=== PATIENT | female | born 1950 | race Caucasian/White ===

== ENCOUNTER 2016-09-25 08:10 | Outpatient (CLI) | payer MEDICARE | END 2016-09-25 08:11 | disposition home or self-care (01) | DX: E78.2 Mixed hyperlipidemia (principal); Z79.899 Other long term (current) drug therapy; E11.65 Type 2 diabetes mellitus with hyperglycemia; K57.32 Diverticulitis of large intestine without perforation or abscess without bleeding ==

== ENCOUNTER 2017-02-15 09:22 | Outpatient (CLI) | payer MEDICARE ==
[2017-02-15 10:10] LABS: HEMOGLOBIN A1C 0.79 g/dL
== END 2017-02-15 09:23 | disposition home or self-care (01) ==
LOC: LAB 09:22
PROVIDERS: ATTEND Internal Medicine
DX: E11.65 Type 2 diabetes mellitus with hyperglycemia (principal); Z79.899 Other long term (current) drug therapy
CPT/HCPCS: 36415; 82947; 83036

== ENCOUNTER 2017-04-11 08:11 | Outpatient (CLI) | payer MEDICARE ==
[2017-04-11 19:51] LABS: BASOPHILS % (AUTO) 0.5 %; EOSINOPHILS # (AUTO) 0.2 10^3/uL (0.0-0.7); EOSINOPHILS % (AUTO) 3.7 %; HCT - HEMATOCRIT 42.6 % (37.0-47.0); HGB - HEMOGLOBIN 14.3 g/dL (12.0-16.0); LYMPHOCYTES # (AUTO) 1.3 10^3/uL (1.5-3.5); LYMPHOCYTES % (AUTO) 27.6 %; MEAN CORPUSCULAR HEMOGLOBIN 30.1 pg (27.0-31.0); MEAN CORPUSCULAR HGB CONC 33.5 g/dL (32.0-36.0); MEAN CORPUSCULAR VOLUME 89.7 fL (81.0-99.0); MEAN PLATELET VOLUME 9.2 fL (7.9-10.8); MONOCYTES # (AUTO) 0.3 10^3/uL (0.0-1.0); MONOCYTES % (AUTO) 7.5 %; NEUTROPHILS # (AUTO) 2.8 10^3/uL (1.5-6.6); NEUTROPHILS % (AUTO) 60.7 %; RED BLOOD COUNT 4.75 10^6/uL (4.20-5.40); RED CELL DISTRIBUTION WIDTH 13.4 % (12.0-15.0); UNCORRECTED WHITE BLOOD COUNT 4.6 x10^3/uL; WHITE BLOOD COUNT 4.6 x10^3/uL (4.8-10.8)
[2017-04-11 20:03] LABS: ALBUMIN/GLOBULIN RATIO 1.4 (1.0-2.2); BILIRUBIN,TOTAL 1.1 mg/dL (0.2-1.0); BUN - BLOOD UREA NITROGEN 19 mg/dL (6-20); CALCIUM 9.3 mg/dL (8.5-10.3); CARBON DIOXIDE - CO2 26 mmol/L (21-32); CHLORIDE 104 mmol/L (101-111); CHOLESTEROL 257 mg/dL; CREATININE 0.8 mg/dL (0.4-1.0); GFR - MDRD 71 (>89); GLUCOSE 137 mg/dL (70-100); HDL CHOLESTEROL 51 mg/dL; LDL/HDL RATIO 3.2 (<4.4); SODIUM 137 mmol/L (135-145); TOTAL PROTEIN 7.2 g/dL (6.7-8.2); TRIGLYCERIDES 219 mg/dL; VLDL CHOLESTEROL 44 mg/dL
[2017-04-11 20:09] LABS: HEMOGLOBIN A1C 0.75 g/dL
== END 2017-04-11 08:12 | disposition home or self-care (01) ==
LOC: LAB.R 08:11
PROVIDERS: ATTEND Internal Medicine
DX: E78.5 Hyperlipidemia, unspecified (principal); I10 Essential (primary) hypertension; E11.9 Type 2 diabetes mellitus without complications
CPT/HCPCS: 80053; 80061; 83036; 85025

== ENCOUNTER 2017-06-06 08:21 | Outpatient (CLI) | payer MEDICARE ==
--- NOTE | 2017-06-06 10:20 | DEXA Report ---
DEXA SCAN: 06/06/2017 CLINICAL INDICATION: Postmenopausal. TECHNIQUE: Dual energy x-ray absorptiometry (DXA) was performed on a [employer] system. Regions measured are the AP spine, femoral neck, and, if needed, forearm. COMPARISON: None. In accordance with the International Society for Clinical Densitometry (ISCD) guidelines, data from previous exams may be reanalyzed using current recommendations and techniques. This is done to allow a more accurate basis for comparison with the current study. FINDINGS Data for the lumbar spine is as follows: REGION BMD (g/cm/cm) T-SCORE Z-SCORE L1 1.055 -0.6 0.8 L2 1.184 -0.1 1.3 L3 1.300 0.8 2.2 L4 1.349 1.2 2.6 TOTAL 1.228 0.4 1.8 NOTE: All evaluable vertebrae are used for classification. Data for the hip is as follows: REGION BMD (g/cm/cm) T-SCORE Z-SCORE Neck 1.057 0.1 1.6 TOTAL 1.024 0.1 1.3 NOTE: The femoral neck or total proximal femur, whichever is lowest, is used for classification. IMPRESSION: THE WHO CLASSIFICATION BASED ON THE INTERNATIONAL REFERENCE STANDARD IS NORMAL. FRACTURE RISK IS NOT INCREASED. RECOMMENDATION: Patients with diagnosis of osteoporosis or osteopenia should have regular bone mineral density assessment. For those eligible for Medicare, routine testing is allowed once every 2 years. Testing frequency can be increased for patients who have rapidly progressing disease or for those who are receiving medical therapy to restore bone mass. COMMENT: World Health Organization (WHO) definitions for osteoporosis and osteopenia: NORMAL BMD: T-score at -1.0 or higher, fracture risk is low. OSTEOPENIA BMD: T-score between -1.0 and -2.5, fracture risk is increased. OSTEOPOROSIS BMD: T-score at -2.5 or lower, fracture risk high. National Osteoporosis Foundation recommends: 1. Obtain adequate dietary calcium (at least 1200 mg per day) and vitamin D (400 -800 international units per day). 2. Participate, as appropriate, in regular weightbearing and muscle- strengthening exercise. 3. Avoid tobacco use and reduce alcohol and caffeine intake. 4. For more detailed information see the website at www.NOF.org. MTDD
== END 2017-06-06 08:22 | disposition home or self-care (01) ==
LOC: DI 08:21
PROVIDERS: ATTEND Internal Medicine
DX: Z78.0 Asymptomatic menopausal state (principal)
CPT/HCPCS: 77080

== ENCOUNTER 2017-06-06 08:22 | Outpatient (CLI) | payer MEDICARE ==
--- NOTE | 2017-06-07 17:30 | Mammography Report ---
DIGITAL SCREENING MAMMOGRAM: 06/06/2017 CLINICAL INDICATION: A 67-year-old for screening. COMPARISON: 05/2016, 07/2014, 07/2013, 06/2012, 04/2009. TECHNIQUE: Routine CC and MLO projections were obtained of the breasts. The breasts demonstrate scattered fibroglandular densities bilaterally. Coarse and punctate, typical ly benign calcifications are present. No suspicious masses, clustered microcalcifications, or region s of architectural distortion are identified. IMPRESSION: BENIGN FINDINGS. RECOMMENDATION: ROUTINE ANNUAL SCREENING UNLESS OTHERWISE CLINICALLY INDICATED. BIRADS CATEGORY: 2, BENIGN FINDINGS. STANDARD QUALIFYING STATEMENTS 1. This examination was reviewed with the aid of Computed-Aided Detection (CAD). 2. A negative or benign imaging report should not delay biopsy if clinically suspicious findings are present. Consider surgical consultation if warranted. More than 5% of cancers are not identified b y imaging. 3. Dense breasts may obscure an underlying neoplasm. JOB #: [id number] EXT JOB #:[id number]
== END 2017-06-06 08:23 | disposition home or self-care (01) ==
LOC: DI 08:22
PROVIDERS: ATTEND Internal Medicine
DX: Z12.31 Encounter for screening mammogram for malignant neoplasm of breast (principal)
CPT/HCPCS: 77067

== ENCOUNTER 2017-06-13 14:46 | Outpatient (CLI) | payer MEDICARE | END 2017-06-13 14:47 | disposition home or self-care (01) | LOC: LAB.R 14:46 | PROVIDERS: ATTEND Obstetrics & Gynecology | DX: N76.0 Acute vaginitis (principal) | CPT/HCPCS: 87480; 87510; 87660 ==

== ENCOUNTER 2017-08-20 09:19 | Outpatient (CLI) | payer MEDICARE ==
[2017-08-20 14:07] LABS: ALT ALANINE AMINOTRANSFERASE 35 IU/L (10-60); AST ASPARTATE AMINOTRANSFERASE 30 IU/L (10-42); GLUCOSE 125 mg/dL (70-100); LDL CHOLESTEROL,DIRECT 111 mg/dL
[2017-08-20 14:24] LABS: HB2 TOTAL 15.6 g/dL; HEMOGLOBIN A1C 0.8 g/dL; HEMOGLOBIN A1C % 6.8 % (4.6-6.2)
== END 2017-08-20 09:20 | disposition home or self-care (01) ==
LOC: LAB.R 09:19
PROVIDERS: ATTEND Internal Medicine
DX: E11.9 Type 2 diabetes mellitus without complications (principal); E78.5 Hyperlipidemia, unspecified
CPT/HCPCS: 82947; 83036; 83721; 84450; 84460

== ENCOUNTER 2017-11-20 08:00 | Outpatient (CLI) | payer MEDICARE ==
[2017-11-20 13:18] LABS: HB2 TOTAL 14.8 g/dL; HEMOGLOBIN A1C 0.82 g/dL; HEMOGLOBIN A1C % 7.2 % (4.6-6.2)
== END 2017-11-20 08:01 | disposition home or self-care (01) ==
LOC: LAB.R 08:00
PROVIDERS: ATTEND Internal Medicine
DX: E11.9 Type 2 diabetes mellitus without complications (principal)
CPT/HCPCS: 83036

== ENCOUNTER 2018-02-20 08:00 | Outpatient (CLI) | payer MEDICARE ==
[2018-02-20 13:30] LABS: HB2 TOTAL 14.7 g/dL; HEMOGLOBIN A1C 0.75 g/dL; HEMOGLOBIN A1C % 6.8 % (4.6-6.2)
== END 2018-02-20 08:01 ==
LOC: LAB.R 08:00
PROVIDERS: ATTEND Internal Medicine
DX: E11.9 Type 2 diabetes mellitus without complications (principal)
CPT/HCPCS: 83036

== ENCOUNTER 2018-06-17 12:09 | Outpatient (CLI) | payer MEDICARE ==
[2018-06-17 13:12] LABS: BASOPHILS # (AUTO) 0.1 10^3/uL (0.0-0.1); BASOPHILS % (AUTO) 0.9 %; EOSINOPHILS % (AUTO) 0.4 %; HGB - HEMOGLOBIN 13.6 g/dL (12.0-16.0); LYMPHOCYTES # (AUTO) 1.5 10^3/uL (1.5-3.5); MEAN CORPUSCULAR HEMOGLOBIN 30.6 pg (27.0-31.0); MEAN CORPUSCULAR HGB CONC 34.7 g/dL (32.0-36.0); MEAN PLATELET VOLUME 8.9 fL (7.9-10.8); MONOCYTES # (AUTO) 0.5 10^3/uL (0.0-1.0); MONOCYTES % (AUTO) 5.5 %; NEUTROPHILS # (AUTO) 6.9 10^3/uL (1.5-6.6); NEUTROPHILS % (AUTO) 76.2 %; PLT - PLATELET COUNT 170 10^3/uL (130-450); RED BLOOD COUNT 4.46 10^6/uL (4.20-5.40); RED CELL DISTRIBUTION WIDTH 13.3 % (12.0-15.0); WHITE BLOOD COUNT 9.1 x10^3/uL (4.8-10.8)
== END 2018-06-17 12:10 | disposition home or self-care (01) ==
LOC: LAB 12:09
PROVIDERS: ATTEND Nurse Practitioner Primary Care
DX: K57.90 Diverticulosis of intestine, part unspecified, without perforation or abscess without bleeding (principal); R10.32 Left lower quadrant pain
CPT/HCPCS: 85025

== ENCOUNTER 2018-07-03 08:35 | Outpatient (CLI) | payer MEDICARE ==
[2018-07-03 14:07] LABS: HB2 TOTAL 13.8 g/dL; HEMOGLOBIN A1C 0.72 g/dL; HEMOGLOBIN A1C % 6.9 % (4.6-6.2)
== END 2018-07-03 23:59 | disposition home or self-care (01) ==
LOC: LAB.R 08:35
PROVIDERS: ATTEND Internal Medicine
DX: E11.9 Type 2 diabetes mellitus without complications (principal)
CPT/HCPCS: 83036

== ENCOUNTER 2018-11-29 08:51 | Outpatient (CLI) | payer MEDICARE ==
--- NOTE | 2018-11-29 10:27 | Mammography Report ---
Reason: SCREENING MAMMO Procedure Date: 11/29/2018 Accession Number: [id number] / [id number] Procedure: MGN - Screening Mammo Dig Bilat CPT Code: FULL RESULT: EXAM: Screening Mammo Dig Bilat DATE: 11/29/2018 9:12 AM CLINICAL HISTORY: Routine screening TECHNIQUE: (B) - Bilateral CC and MLO views were obtained. COMPARISON: 06/06/2017, 06/05/2016 PARENCHYMAL PATTERN: (A) - The breasts demonstrate scattered fibroglandular densities bilaterally. FINDINGS: There is no significant interval change. There are no suspicious masses, calcifications, or areas of distortion. IMPRESSION: Negative examination. BI-RADS category 1. RECOMMENDATION: (ANNUAL) - Recommend routine annual screening mammography. BI-RADS CATEGORY: (1) - Negative. STANDARD QUALIFYING STATEMENTS: 1. This examination was not reviewed with the aid of Computer-Aided Detection (CAD). 2. A negative or benign imaging report should not preclude biopsy if clinically suspicious findings are present. 3. Dense breasts may obscure an underlying neoplasm. 4. This examination was reviewed without the aid of 3D breast imaging (tomosynthesis).
== END 2018-11-29 08:52 | disposition home or self-care (01) ==
LOC: DI.N 08:51
DX: Z12.31 Encounter for screening mammogram for malignant neoplasm of breast (principal)
CPT/HCPCS: 77067

== ENCOUNTER 2019-07-29 09:30 | Outpatient (CLI) | payer MEDICARE ==
[2019-07-29 09:48] LABS: BASOPHILS % (AUTO) 0.4 %; EOSINOPHILS # (AUTO) 0.1 10^3/uL (0.0-0.7); HGB - HEMOGLOBIN 13.3 g/dL (12.0-16.0); LYMPHOCYTES # (AUTO) 1.4 10^3/uL (1.5-3.5); LYMPHOCYTES % (AUTO) 28.9 %; MEAN CORPUSCULAR HEMOGLOBIN 30.5 pg (27.0-31.0); MEAN CORPUSCULAR HGB CONC 33.3 g/dL (32.0-36.0); MEAN CORPUSCULAR VOLUME 91.5 fL (81.0-99.0); MEAN PLATELET VOLUME 9.9 fL (7.9-10.8); MONOCYTES # (AUTO) 0.4 10^3/uL (0.0-1.0); MONOCYTES % (AUTO) 8.4 %; NEUTROPHILS # (AUTO) 2.9 10^3/uL (1.5-6.6); NEUTROPHILS % (AUTO) 60.1 %; PLT - PLATELET COUNT 170 10^3/uL (130-450); RED BLOOD COUNT 4.36 10^6/uL (4.20-5.40); RED CELL DISTRIBUTION WIDTH 12.8 % (12.0-15.0); WHITE BLOOD COUNT 4.9 x10^3/uL (4.8-10.8)
[2019-07-29 10:08] LABS: ALBUMIN 4.4 g/dL (3.2-5.5); ALBUMIN/GLOBULIN RATIO 1.8 (1.0-2.2); ALKALINE PHOSPHATASE 50 IU/L (42-121); ALT ALANINE AMINOTRANSFERASE 36 IU/L (10-60); AST ASPARTATE AMINOTRANSFERASE 34 IU/L (10-42); BILIRUBIN,TOTAL 1.2 mg/dL (0.2-1.0); BUN - BLOOD UREA NITROGEN 18 mg/dL (6-20); CALCIUM 9.1 mg/dL (8.5-10.3); CARBON DIOXIDE - CO2 30 mmol/L (21-32); CHLORIDE 100 mmol/L (101-111); CHOL/HDL RATIO 5.4 (<4.4); CHOLESTEROL 277 mg/dL; CREATININE 0.9 mg/dL (0.4-1.0); GFR - MDRD 62 (>89); GLUCOSE 140 mg/dL (70-100); HDL CHOLESTEROL 51 mg/dL; LDL CHOLESTEROL,CALCULATED 165 mg/dL; LDL/HDL RATIO 3.2 (<4.4); SODIUM 137 mmol/L (135-145); TOTAL PROTEIN 6.8 g/dL (6.7-8.2); VLDL CHOLESTEROL 61 mg/dL
[2019-07-29 10:12] LABS: CREATININE,URINE 211.6 mg/dL; MICROALBUM/CREATININE RATIO,UR 6.1 ug/mg (<30.0); MICROALBUMIN,URINE 1.3 mg/dL (0-300.0)
[2019-07-29 10:48] LABS: HB2 TOTAL 13.6 g/dL; HEMOGLOBIN A1C 0.75 g/dL; HEMOGLOBIN A1C % 7.2 % (4.6-6.2)
== END 2019-07-29 09:31 | disposition home or self-care (01) ==
LOC: LAB 09:30
PROVIDERS: ATTEND Nurse Practitioner
DX: I10 Essential (primary) hypertension (principal); E11.9 Type 2 diabetes mellitus without complications; E78.5 Hyperlipidemia, unspecified; R13.10 Dysphagia, unspecified
CPT/HCPCS: 36415; 80053; 80061; 82043; 82570; 83036; 83721; 84443; 85025

== ENCOUNTER 2019-08-13 12:57 | Outpatient (CLI) | payer MEDICARE ==
--- NOTE | 2019-08-13 14:56 | XRAY Report ---
Reason: DYSPHAGIA Procedure Date: 08/13/2019 Accession Number: [id number] / [id number] Procedure: FL - Modified Barium Swallow W/SP CPT Code: Final Report FULL RESULT: EXAM: MODIFIED BARIUM SWALLOW EXAM DATE: 08/13/2019 01:47 PM. CLINICAL HISTORY: Dysphagia. COMPARISON: None. TECHNIQUE: Under the direction of speech pathology, patient swallowed various consistencies of barium under lateral fluoroscopic observation of the neck. Fluoroscopy Time: 39 seconds. Number of Images: 33. FINDINGS: Swallowing Mechanism: Normal oral phase and swallowing reflex. Airway Protection: Normal epiglottic motion. No episodes of tracheal penetration or aspiration with all consistencies of barium. Pharynx: Normal. No significant vallecular or piriform sinus contrast pooling. Other: None. IMPRESSION: Normal modified barium swallow. No aspiration identified. RADIA
== END 2019-08-13 12:58 | disposition home or self-care (01) ==
LOC: DI 12:57
PROVIDERS: ATTEND Nurse Practitioner
DX: R13.10 Dysphagia, unspecified (principal)
CPT/HCPCS: 74230

== ENCOUNTER 2019-10-17 16:53 | Outpatient (CLI) | payer MEDICARE ==
[2019-10-17 17:35] LABS: BASOPHILS % (AUTO) 0.3 %; EOSINOPHILS # (AUTO) 0.1 10^3/uL (0.0-0.7); EOSINOPHILS % (AUTO) 0.4 %; HGB - HEMOGLOBIN 13.9 g/dL (12.0-16.0); LYMPHOCYTES # (AUTO) 1.7 10^3/uL (1.5-3.5); LYMPHOCYTES % (AUTO) 14.9 %; MEAN CORPUSCULAR HEMOGLOBIN 30.5 pg (27.0-31.0); MEAN CORPUSCULAR HGB CONC 33.6 g/dL (32.0-36.0); MEAN CORPUSCULAR VOLUME 90.8 fL (81.0-99.0); MEAN PLATELET VOLUME 10.4 fL (7.9-10.8); MONOCYTES # (AUTO) 0.8 10^3/uL (0.0-1.0); MONOCYTES % (AUTO) 7.3 %; NEUTROPHILS # (AUTO) 8.9 10^3/uL (1.5-6.6); NEUTROPHILS % (AUTO) 76.8 %; PLT - PLATELET COUNT 186 10^3/uL (130-450); RED BLOOD COUNT 4.56 10^6/uL (4.20-5.40); RED CELL DISTRIBUTION WIDTH 12.9 % (12.0-15.0); WHITE BLOOD COUNT 11.6 x10^3/uL (4.8-10.8)
--- NOTE | 2019-10-17 17:37 | XRAY Report ---
Reason: ABDOMINAL PAIN, FEVER, COLITIS Procedure Date: 10/17/2019 Accession Number: [id number] / [id number] Procedure: XR - Abdomen 2 View X-Ray CPT Code: 02787 Final Report FULL RESULT: EXAM: ABDOMEN RADIOGRAPHY EXAM DATE: 10/17/2019 05:12 PM. CLINICAL HISTORY: ABDOMINAL PAIN. FEVER. COLITIS. COMPARISON: None. TECHNIQUE: 2 views. FINDINGS: Lung Bases: Unremarkable. Bowel Gas Pattern: Within normal limits. No dilated loops or abnormal fluid levels. No excessive stool Free Air: None. Other: Right lower quadrant clips, likely from appendectomy. No soft tissue calcifications identified. IMPRESSION: Normal 2-view abdomen x-ray. RADIA
[2019-10-17 17:42] LABS: CALCIUM 9.5 mg/dL (8.5-10.3); CREATININE 0.9 mg/dL (0.4-1.0)
== END 2019-10-17 16:54 | disposition home or self-care (01) ==
LOC: DI 16:53
PROVIDERS: ATTEND Family Medicine
DX: R10.32 Left lower quadrant pain (principal); R50.9 Fever, unspecified; K52.9 Noninfective gastroenteritis and colitis, unspecified
CPT/HCPCS: 36415; 74019; 80048; 85025

== ENCOUNTER 2019-11-17 11:38 | Outpatient (CLI) | payer MEDICARE ==
[2019-11-17 17:34] LABS: ALBUMIN 4.2 g/dL (3.2-5.5); ALBUMIN/GLOBULIN RATIO 1.5 (1.0-2.2); ALKALINE PHOSPHATASE 57 IU/L (42-121); ALT ALANINE AMINOTRANSFERASE 29 IU/L (10-60); AST ASPARTATE AMINOTRANSFERASE 27 IU/L (10-42); BILIRUBIN,TOTAL 0.8 mg/dL (0.2-1.0); BUN - BLOOD UREA NITROGEN 19 mg/dL (6-20); CALCIUM 9.3 mg/dL (8.5-10.3); CARBON DIOXIDE - CO2 28 mmol/L (21-32); CHLORIDE 100 mmol/L (101-111); CHOL/HDL RATIO 3.4 (<4.4); CHOLESTEROL 175 mg/dL; CREATININE 0.8 mg/dL (0.4-1.0); GLUCOSE 110 mg/dL (70-100); HDL CHOLESTEROL 51 mg/dL; LDL CHOLESTEROL,CALCULATED 92 mg/dL; LDL/HDL RATIO 1.8 (<4.4); SODIUM 138 mmol/L (135-145); VLDL CHOLESTEROL 32 mg/dL
== END 2019-11-17 23:59 | disposition home or self-care (01) ==
LOC: LAB.WCP 11:38
PROVIDERS: ATTEND Nurse Practitioner
DX: E78.5 Hyperlipidemia, unspecified (principal)
CPT/HCPCS: 36415; 80053; 80061; 83721

== ENCOUNTER 2020-01-28 11:00 | Outpatient (CLI) | payer MEDICARE ==
[2020-01-28 13:17] LABS: HB2 TOTAL 13.2 g/dL; HEMOGLOBIN A1C 0.62 g/dL; HEMOGLOBIN A1C % 6.4 % (4.6-6.2)
== END 2020-01-28 11:01 | disposition home or self-care (01) ==
LOC: LAB 11:00
PROVIDERS: ATTEND Nurse Practitioner
DX: E78.5 Hyperlipidemia, unspecified (principal); E11.9 Type 2 diabetes mellitus without complications
CPT/HCPCS: 36415; 82043; 83036

== ENCOUNTER 2020-08-17 15:40 | Outpatient (CLI) | payer MEDICARE, OTHER ==
--- NOTE | 2020-08-18 10:10 | Mammography Report ---
BILATERAL DIGITAL SCREENING MAMMOGRAM 3D/2D: 08/17/2020 CLINICAL: Routine screening. Comparison is made to exams dated: 11/29/2018 mammogram, 06/06/2017 mammogram - [facility], 08/18/2014 mammogram - [facility], 06/05/2016 mammogram - [facility], 08/04/2013 mammogram, and 07/12/2012 ultrasound - [facility]. There are scattered fibroglandular elements in both breasts. No significant masses, calcifications, or other findings are seen in either breast. There has been no significant interval change. IMPRESSION: NEGATIVE There is no mammographic evidence of malignancy. A 1 year screening mammogram is recommended. This exam was interpreted at Station ID: [id number]. NOTE: For mammograms, a report in lay terms will be sent to the patient. Approximately 15% of breast malignancies will not be visualized mammographically. In the management of a palpable breast mass, a negative mammogram must not discourage biopsy of a clinically suspicious lesion. Electronically Signed By: Henry Grier M.D. ddp/penrad:08/17/2020 16:22:01 ACR BI-RADS Category 1: Negative 3341F PARENCHYMAL PATTERN: (A) - The breast(s) demonstrate(s) scattered fibroglandular densities. BI-RADS CATEGORY: (1) - 1 RECOMMENDATION: (ANNUAL) - Recommend routine annual screening mammography. [id number] 1 year screening LATERALITY: (B)
== END 2020-08-17 15:41 | disposition home or self-care (01) ==
LOC: DI 15:40
DX: Z12.31 Encounter for screening mammogram for malignant neoplasm of breast (principal)

== ENCOUNTER 2021-06-30 08:00 | Emergency (ER) | payer MEDICARE ==
--- NOTE | 2021-06-30 08:23 | ED Physician Documentation ---
History of Present Illness - Stated complaint Stated Complaint: HIGH BP - Chief complaint Chief Complaint: General - History obtained from History obtained from: Patient - Additonal information Additional information: Patient comes emergency department chief complaint of elevated blood pressure. She states that her blood pressures have been sometimes measuring 180-200/90-100. Patient denies any chest pain, shortness of breath, headache, neurologic deficits, or hematuria. She states that she occasionally will feel as though her heart is pounding, Though not very often. Patient states she was previously well controlled on her medication. She currently takes lisinopril 10 mg every morning. She states that after her googled it, he thought maybe it would be more effective for the patient if she took her lisinopril at night, so she tried that too, but with no improvement. No other complaints at this time. The patient sees Dr. Hagen, and states that she can get an appointment with him for follow-up if needed. Review of Systems Ten Systems: 10 systems reviewed and negative Constitutional: reports: Reviewed and negative Eyes: reports: Reviewed and negative Ears: reports: Reviewed and negative Nose: reports: Reviewed and negative Throat: reports: Reviewed and negative Cardiac: reports: Reviewed and negative Respiratory: reports: Reviewed and negative GI: reports: Reviewed and negative : reports: Reviewed and negative Skin: reports: Reviewed and negative Musculoskeletal: reports: Reviewed and negative Neurologic: reports: Reviewed and negative Psychiatric: reports: Reviewed and negative Endocrine: reports: Reviewed and negative Immunocompromised: reports: Reviewed and negative PD PAST MEDICAL HISTORY - Past Medical History Cardiovascular: Hypertension Endocrine/Autoimmune: Type 2 diabetes - Past Surgical History Past Surgical History: Yes General: Appendectomy - Present Medications Home Medications: Ambulatory Orders Medication Instructions Recorded Confirmed lisinopriL [Lisinopril] 10 mg PO DAILY 01/12/16 06/30/21 metFORMIN [Glucophage] 500 mg PO DAILY 01/12/16 01/12/16 Aspirin Chewable [[facility] Giovanny 81 mg PO DAILY 07/24/16 06/30/21 Aspirin] - Allergies Allergies/Adverse Reactions: Allergies Allergy/AdvReac Type Severity Reaction Status Date / Time No Known Drug Allergies Allergy Verified 01/12/16 17:14 - Social History Does the pt smoke?: No Smoking Status: Never smoker Does the pt drink ETOH?: No Does the pt have substance abuse?: No - Immunizations Immunizations are current?: No Immunizations: TDAP >10years/unknown PD ED PE NORMAL - Vitals Vital signs reviewed: Yes - General General: Alert and oriented X 3, No acute distress, Well developed/nourished - HEENT HEENT: Atraumatic, PERRL, EOMI, Moist mucous membranes - Neck Neck: Supple, no meningeal sign - Cardiac Cardiac: RRR, No murmur, Strong equal pulses - Respiratory Respiratory: No respiratory distress, Clear bilaterally - Abdomen Abdomen: Soft, Non tender, Non distended - Derm Derm: Normal color, Warm and dry, No rash - Extremities Extremities: No deformity, No edema, No calf tenderness / cord - Neuro Neuro: Alert and oriented X 3, proof passer 2-12 intact, Normal speech - Psych Psych: Normal mood, Normal affect Results - Vitals Vitals: Oxygen O2 Source Room air - Labs Labs: Laboratory Tests 06/30/21 08:51 POC Whole Bld Glucose 131 H PD MEDICAL DECISION MAKING - ED course Complexity details: reviewed old records, considered differential, d/w patient ED course: The patient did have higher blood pressures in the emergency department, but she was asymptomatic. I suggested to her that perhaps it would be good for her to add a dose of lisinopril at night in addition to, instead of instead of, her morning dose. I have suggested initially adding 5 mg of lisinopril in the evening and going up to 10 if she feels like she needs better control. I advised her to take her blood pressure forcing in the morning as she usually does, but also perhaps in the midmorning once her meds have had a chance to kick in, in mid afternoon, and then in the evening. Patient is agreeable to this plan. She states she will call Dr. Hagen's office first thing after she goes home, to get an appointment set up. Departure - Departure Disposition: Home, Self Care Clinical Impression: Hypertension Qualifiers: Hypertension type: primary hypertension Qualified Code(s): I10 - Essential (primary) hypertension Condition: Stable Instructions: ED HTN Established Comments: Your blood pressure is high, but you do not have any symptoms to indicate a hypertensive emergency, which is defined by distinct evidence of acute injury to vital organs. Given that you have had increasingly high blood pressures over the last week, it may be helpful to add an evening dose of your lisinopril for now, and see if this helps avoid the morning highs. You may continue taking the lisinopril 10 mg in the morning, and add 5 mg at night. In addition to your first thing in the morning blood pressure check, you can check in the midmorning, midafternoon, and then right before your evening dose of medicine, and to get an idea of how your blood pressure is responding to the medicine throughout the day. Please call Dr. Hagen's office this afternoon to set up an appointment for follow-up as soon as possible, to discuss what he thinks would be a good long-term plan for your blood pressure control. Please also in the meantime avoid foods with high levels of salt or sugar. Discharge Date/Time: 06/30/21 10:36
[2021-06-30] MEDS ORDERED: lisinopriL 5 MG TABLET PO STA (09:16)
[2021-06-30 10:37] VITALS: BP 130/100
== END 2021-06-30 10:36 | disposition home or self-care (01) ==
LOC: ED 08:00
DX: I10 Essential (primary) hypertension (principal); E11.9 Type 2 diabetes mellitus without complications; Z79.84 Long term (current) use of oral hypoglycemic drugs
CPT/HCPCS: 99282; 99284; A9270

== ENCOUNTER 2024-07-20 09:12 | Observation (INO) ==
--- NOTE | 2024-07-20 09:20 | ED Physician Documentation ---
History of Present Illness Stated complaint Stated Complaint: SYNCOPE W/FALL Chief complaint Chief Complaint: Neuro History obtained from History obtained from: Patient and EMS Additonal information Additional information: 74-year-old woman with type 2 diabetes and hypertension woke up this morning feeling tired but generally okay, she went into the kitchen around 8 AM and started to feel lightheaded type dizziness and then nauseous subsequently went into the bathroom thinking she might have to vomit and had a syncopal episode without clear injury. She did vomit several times. She denies abdominal pain, diarrhea, chest pain, trouble breathing. She is still feeling nauseous. Prehospital blood sugar in the 200s. Meds/Allgy Home Medications Ambulatory Orders Medication Instructions Recorded Confirmed lisinopril 5 mg tablet 10 mg PO DAILY 01/12/16 06/30/21 metformin 500 mg tablet 500 mg PO DAILY 01/12/16 01/12/16 aspirin 81 mg chewable tablet 81 mg PO DAILY 07/24/16 06/30/21 Allergies Allergies Allergy/AdvReac Type Severity Reaction Status Date / Time No Known Drug Allergies Allergy Verified 07/20/24 09:21 [facility] Medical History Medical History (Updated 07/20/24 @ 11:29 by Robles Mason MD) Diabetes Social History Social History Smoking Status: Never smoker Relationship: Do you feel safe in your home environment?: Yes Suffered physical, verbal, emotional, or financial abuse?: No History of Abuse: No POLST Patient has POLST: No Exam Constitutional normal general appearance Soft-spoken but nontoxic, covered in vomit. Nonbloody. 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 Relevant findings are: Normal sinus rhythm with rate of 68, no ST or T wave changes. No wide QRS or long QTc. Overall normal EKG. Labs Labs: Laboratory Tests 07/20/24 10:42 WBC 9.3 RBC 4.19 L Hgb 12.4 Hct 38.2 MCV 91.2 MCH 29.6 MCHC 32.5 RDW 12.7 Plt Count 148 MPV 10.6 Neut # (Auto) 8.1 H Lymph # (Auto) 0.8 L [place] # (Auto) 0.4 Eos # (Auto) 0.0 Baso # (Auto) 0.0 Absolute Nucleated RBC 0.00 Nucleated RBC % 0.0 Sodium 138 Potassium 3.6 Chloride 108 Carbon Dioxide 26 Anion Gap 4.0 L BUN 18 Creatinine 0.9 Estimated GFR (MDRD) 61 L Glucose 150 H Calcium 8.9 Total Bilirubin 0.6 AST 18 ALT 22 Alkaline Phosphatase 62 Total Protein 6.2 L Albumin 4.1 Globulin 2.1 Albumin/Globulin Ratio 2.0 Lipase 63 Rads (name of study) CT of the head without contrast was unremarkable.: Relevant Findings:: Final report received and EMP independent interpretation of test (NAD, no ICH) PD Medical Decision Making ED course ED course: 74-year-old woman with syncope associated with vomiting. Could be vasovagal but cardiac event is also considered. EKG nonischemic. On the monitor she is having occasional PVCs. No runs of anything. CBC, CMP unremarkable. Still feeling weak and dizzy but less nauseous after IV fluids and Zofran. 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 All parties wanting observation for syncope and spoke with Dr. Ramsey for same at 11:30 AM. Discharge Plan Discharge Patient Disposition: ED Place in Observation Condition: Stable Clinical Impression: Syncope Qualifiers: Syncope type: vasovagal syncope Qualified Code(s): R55 - Syncope and collapse Prescriptions: No Action metformin 500 MG tablet 500 mg PO DAILY lisinopril 5 MG tablet 10 mg PO DAILY aspirin 81 MG tablet,chewable 81 mg PO DAILY Print Language: Hebrew Stand Alone Forms: PCP List
[2024-07-20] MEDS: SODIUM CHLORIDE 0.9% 1,000 ML IV STA (09:28)
[2024-07-20] MEDS: ONDANSETRON 4 MG/2 ML VIAL IVP STA (09:28)
--- NOTE | 2024-07-20 10:07 | CT Report ---
PROCEDURE: CT Head WO INDICATIONS: head inj, syncope TECHNIQUE: Noncontrast 4.5 mm thick angled axial sections acquired from the foramen magnum to the vertex. For r adiation dose reduction, the following was used: automated exposure control, adjustment of mA and/or kV according to patient size. COMPARISON: None. FINDINGS: Image quality: Excellent. CSF spaces: Basal cisterns are patent. No extra-axial fluid collections. Ventricles are normal in size and shape. Brain: No midline shift. No intracranial masses or hemorrhage. Oconnell-white matter interface is norm al. Skull and face: Calvarium and visualized facial bones are intact, without suspicious lesions. Sinuses: Visualized sinuses and mastoids are clear. IMPRESSION: No intracranial hemorrhage is seen. No acute intracranial pathology. Reviewed by: Marc Sandhu MD on 07/20/2024 9:06 AM [facility] Approved by: Marc Sandhu MD on 07/20/2024 9:06 AM [facility] Station ID: [id number]
[2024-07-20 10:45] LABS: BASOPHILS % (AUTO) 0.1 %; EOSINOPHILS % (AUTO) 0.3 %; HCT - HEMATOCRIT 38.2 % (37.0-47.0); HGB - HEMOGLOBIN 12.4 g/dL (12.0-16.0); LYMPHOCYTES # (AUTO) 0.8 10^3/uL (1.5-3.5); LYMPHOCYTES % (AUTO) 8.1 %; MEAN CORPUSCULAR HEMOGLOBIN 29.6 pg (27.0-31.0); MEAN CORPUSCULAR HGB CONC 32.5 g/dL (32.0-36.0); MEAN CORPUSCULAR VOLUME 91.2 fL (81.0-99.0); MEAN PLATELET VOLUME 10.6 fL (7.9-10.8); MONOCYTES # (AUTO) 0.4 10^3/uL (0.0-1.0); NEUTROPHILS # (AUTO) 8.1 10^3/uL (1.5-6.6); NEUTROPHILS % (AUTO) 87.2 %; PLT - PLATELET COUNT 148 10^3/uL (130-450); RED BLOOD COUNT 4.19 10^6/uL (4.20-5.40); RED CELL DISTRIBUTION WIDTH 12.7 % (12.0-15.0); WHITE BLOOD COUNT 9.3 x10^3/uL (4.8-10.8)
[2024-07-20 11:06] LABS: ALBUMIN 4.1 g/dL (3.2-5.5); BILIRUBIN,TOTAL 0.6 mg/dL (0.2-1.0); CALCIUM 8.9 mg/dL (8.5-10.3); CREATININE 0.9 mg/dL (0.6-1.3); POTASSIUM 3.6 mmol/L (3.5-4.5); TOTAL PROTEIN 6.2 g/dL (6.4-8.9)
[2024-07-20 11:46] LABS: BILIRUBIN,URINE NEGATIVE (NEGATIVE); GLUCOSE, URINE (UA) NEGATIVE (NEGATIVE); KETONES,URINE (UA) NEGATIVE (NEGATIVE); LEUKOCYTE ESTERASE, URINE NEGATIVE (NEGATIVE); NITRITE,URINE NEGATIVE (NEGATIVE); OCCULT BLOOD,URINE NEGATIVE (NEGATIVE); PROTEIN,URINE NEGATIVE (NEGATIVE); UROBILINOGEN,URINE 0.2 (NORMAL) E.U./dL (NORMAL)
[2024-07-20 11:50] LABS: CLARITY,URINE CLEAR (CLEAR)
--- NOTE | 2024-07-20 11:55 | HISTORY & PHYSICAL EXAMINATION ---
Chief Complaint Chief Complaint Chief Complaint: Syncope History of Present Illness Admitted From Admitted From:: Home History Obtained From Records Reviewed: EMR History obtained from: EMR, patient interview Exam Limitations: None History of Present Illness HPI Comment/Other: 74-year-old female past medical history significant for type 2 diabetes and hypertension who reports she has been having some intermittent diarrhea over the past week. She woke up this morning feeling tired, and started feeling lightheaded and dizzy when she started walking around. She went to the bathroom thinking she might have to throw up and had a syncopal episode. She vomited several times. She denies fevers but reports chills In the ER, workup has been unremarkable thus far. Head CT was without acute abnormality. EKG NSR. Chemistry panel without significant abnormality. Meds/Allgy Home Medications Ambulatory Orders Medication Instructions Recorded Confirmed lisinopril 5 mg tablet 10 mg PO DAILY 01/12/16 06/30/21 metformin 500 mg tablet 500 mg PO DAILY 01/12/16 01/12/16 aspirin 81 mg chewable tablet 81 mg PO DAILY 07/24/16 06/30/21 Allergies Allergies Allergy/AdvReac Type Severity Reaction Status Date / Time No Known Drug Allergies Allergy Verified 07/20/24 09:21 [facility] Medical History Medical History (Updated 07/20/24 @ 11:29 by Robles Mason MD) Diabetes Social History Social History Smoking Status: Never smoker Second hand tobacco smoke exposure: No Do you dip or chew tobacco?: No Do you vape?: No Relationship: Level: Independent Do you feel safe in your home environment?: Yes Suffered physical, verbal, emotional, or financial abuse?: No History of Abuse: No POLST Patient has POLST: No Review of Systems Status of ROS: 10 or more systems reviewed and unremarkable except as noted in history and below Constitutional Reports: Chills; Denies: Fever Cardiovascular Denies: Irregular heart rate, chest pain, palpitations or shortness of breath with exertion Respiratory Denies: Shortness of breath Gastrointestinal Denies: Abdominal pain Genitourinary Denies: Painful urination Exam Constitutional normal general appearance, no apparent distress and average body habitus HENMT normocephalic and head/scalp atraumatic Eyes PERRL Neck/C-Spine visual inspection normal Chest inspection of chest normal Respiratory breath sounds equal bilaterally Cardiovascular normal heart rate noted and peripheral pulses 2+ throughout Gastrointestinal abdomen normal to inspection and abdomen soft to palpation Genitourinary bladder normal to palpation Extremities normal to inspection and no tenderness Neurology coil placer II-XII intact and GCS 15 Psychiatry oriented x3 Skin skin color normal Conclusion/Plan Problem List (1) Syncope: Plan: Placed in observation Telemetry MRI Brain Echo Qualifiers: Syncope type: vasovagal syncope Qualified Code(s): R55 - Syncope and collapse (2) Diabetes: Plan: Hold metformin while inpatient SSI A1c in a.m. Plan Placed in observation until we can obtain echo and MRI Full code is decision-maker Lab Results Lab results reviewed: Yes 07/20/24 10:42 07/20/24 10:42 Diagnostic Imaging Results Diagnostic Imaging Results: positive Final report reviewed Diagnostic Imaging Results Comments: CT head no acute abnormality EKG Results EKG Interpreted Independently: Yes EKG Findings: EKG NSR Core Measures Anticipated LOS I expect patient to be DC'd or transferred within 96 hours.: Yes DVT/VTE - Prophylaxis VTE/DVT Device ordered at admit?: No VTE/DVT Prophylaxis med ordered at admit?: Yes
[2024-07-20] MEDS ORDERED: SODIUM CHLORIDE FLUSH 0.9% 10 ML SYRINGE IVP PRN (12:12)
[2024-07-20] MEDS ORDERED: ONDANSETRON 4 MG/2 ML VIAL IVP PRN (12:12)
[2024-07-20 13:08] LABS: B. PARAPERTUSSIS- RESP PCR PAN NOT DETECTED; B. PERTUSSIS- RESP PCR PANEL NOT DETECTED; C. PNEUMONIAE- RESP PCR PANEL NOT DETECTED; CORONAVIRUS 229E-RESP PCR NOT DETECTED; CORONAVIRUS HKU1-RESP PCR NOT DETECTED; CORONAVIRUS NL63-RESP PCR NOT DETECTED; CORONAVIRUS OC43-RESP PCR NOT DETECTED; HUMAN METAPNEUMOVIRUS NOT DETECTED; INFLUENZA A- RESP PCR PANEL NOT DETECTED; INFLUENZA B - RESP PCR PANEL NOT DETECTED; M. PNEUMONIAE- RESP PCR PANEL NOT DETECTED; PARAINFLUENZA VIRUS 1 NOT DETECTED; PARAINFLUENZA VIRUS 2 NOT DETECTED; PARAINFLUENZA VIRUS 3 NOT DETECTED; PARAINFLUENZA VIRUS 4 NOT DETECTED; RHINOVIRUS/ENTEROVIRUS NOT DETECTED; RSV- RESP PCR PANEL NOT DETECTED; SARS-CoV-2 -RESP PCR PANEL NOT DETECTED
[2024-07-20] MEDS: ONDANSETRON ODT 4 MG TABLET TL PRN (13:12)
[2024-07-20] MEDS: SODIUM CHLORIDE 0.9% 1,000 ML IV SCH (13:12)
[2024-07-20] MEDS: INSULIN LISPRO 300 UNIT/3 ML PEN SUBQ SCH (13:36)
--- NOTE | 2024-07-20 13:42 | PHARMACY PROGRESS NOTE ---
Best Possible Medication History Admit Date and Time: 07/20/24 [id number] Home Medications Medication Instructions Recorded Confirmed Type amlodipine 10 mg tablet 10 mg PO DAILY 07/20/24 07/20/24 History ascorbic acid (vitamin C) 500 mg 500 mg PO DAILY 07/20/24 07/20/24 History tablet atorvastatin 20 mg tablet 20 mg PO QPM 07/20/24 07/20/24 History cholecalciferol (vitamin D3) 1,250 1,250 mcg PO QWEEK 07/20/24 07/20/24 History mcg (50,000 unit) capsule diphenhydramine HCl 25 mg capsule 25 mg PO Q8H PRN allergy symptoms 07/20/24 07/20/24 History (Allergy (diphenhydramine)) glucosamine-chondroitin 500 mg-400 1 cap PO DAILY 07/20/24 07/20/24 History mg capsule hydrochlorothiazide 12.5 mg tablet 12.5 mg PO DAILY 07/20/24 07/20/24 History ibuprofen 200 mg tablet (Advil) 200 mg PO DAILY PRN pain 07/20/24 07/20/24 History lisinopril 10 mg tablet 10 mg PO DAILY 07/20/24 07/20/24 History lutein 10 mg tablet 10 mg PO DAILY 07/20/24 07/20/24 History metformin 500 mg tablet,extended 500 mg PO BID 07/20/24 07/20/24 History release 24 hr omega 5-iwc-cqu-fish oil 1,000 mg 1 cap PO DAILY 07/20/24 07/20/24 History (120 mg-180 mg) capsule (Fish Oil) trazodone 50 mg tablet 75 mg PO QPM PRN sleep 07/20/24 07/20/24 History turmeric root extract 500 mg tablet 500 mg PO DAILY 07/20/24 07/20/24 History Processed by: Pharmacy Medications reviewed in ED?: No Medication History completed: Yes Patient Interview: Completed Secondary Source(s): Pharmacy records and Insurance records [facility] Statement: As the person ultimately responsible for medication therapy, providers are able to order a medication from an existing home medication list in [facility] via the "Reconcile Routine" prior to Confirmation of that medication by call center support consultant. Such practice is discouraged except when the physician, in their clinical judgment, deems that a medical need exists for a medication without regard to previous use.
[2024-07-20] MEDS: SODIUM CHLORIDE FLUSH 0.9% 10 ML SYRINGE IVP SCH (17:16)
[2024-07-20] MEDS: ACETAMINOPHEN 325 MG TABLET PO PRN (20:54)
[2024-07-21 05:39] LABS: BASOPHILS % (AUTO) 0.2 %; EOSINOPHILS % (AUTO) 0.6 %; HGB - HEMOGLOBIN 11.7 g/dL (12.0-16.0); LYMPHOCYTES # (AUTO) 1.8 10^3/uL (1.5-3.5); LYMPHOCYTES % (AUTO) 34.2 %; MEAN CORPUSCULAR HEMOGLOBIN 30.2 pg (27.0-31.0); MEAN CORPUSCULAR HGB CONC 33.4 g/dL (32.0-36.0); MEAN CORPUSCULAR VOLUME 90.4 fL (81.0-99.0); MEAN PLATELET VOLUME 10.4 fL (7.9-10.8); MONOCYTES # (AUTO) 0.4 10^3/uL (0.0-1.0); MONOCYTES % (AUTO) 8.1 %; NEUTROPHILS % (AUTO) 56.7 %; PLT - PLATELET COUNT 144 10^3/uL (130-450); RED BLOOD COUNT 3.87 10^6/uL (4.20-5.40); WHITE BLOOD COUNT 5.2 x10^3/uL (4.8-10.8)
[2024-07-21 05:57] LABS: CALCIUM 8.3 mg/dL (8.5-10.3); CREATININE 0.9 mg/dL (0.6-1.3); POTASSIUM 3.7 mmol/L (3.5-4.5)
[2024-07-21 06:21] VITALS: TEMP 97.9
[2024-07-21] MEDS: ENOXAPARIN 40 MG/0.4 ML SYRINGE SUBQ SCH (08:10)
[2024-07-21] MEDS: lisinopriL 5 MG TABLET PO SCH (08:10)
[2024-07-21 08:59] LABS: ESTIMATED AVERAGE GLUCOSE 143 mg/dL (70-100); HEMOGLOBIN A1c% 6.6 % (4.27-6.07)
[2024-07-21 09:22] VITALS: BP 121/65; O2SAT 95
--- NOTE | 2024-07-21 12:47 | MRI Report ---
PROCEDURE: MRI Brain WO INDICATIONS: Syncope workup TECHNIQUE: Noncontrast axial T1 spin echo, axial T2 fast spin echo, sagittal and axial FLAIR, coronal T2 fast sp in echo, axial gradient echo, axial diffusion and ADC through the brain. COMPARISON: Correlation is made with CT, 07/20/2024. FINDINGS: Image quality: Excellent. CSF Spaces: Basal cisterns are patent. No extra-axial fluid collections. Ventricles are normal in size and shape. Brain: No intracranial masses or hemorrhage. Oconnell/white matter interface is normal. Brainstem appe ars normal. Diffusion-weighted images demonstrate no acute ischemic insult. No chronic ischemic ins ults. Normal intravascular flow voids are present. Age-appropriate brain parenchymal volume loss an d chronic small vessel ischemic change can be seen. Skull and face: Calvarium has normal marrow signal. Orbits appear normal. Sinuses: Sinuses and mastoids are clear. IMPRESSION: Unremarkable intracranial study for age, without a cause of syncope identified. No findings of acute or subacute infarction are seen. No prior territorial infarction can be seen. To the limits of this noncontrast study, no findings of masses or mass effect can be seen. Reviewed by: Marc Sandhu MD on 07/21/2024 11:46 AM [facility] Approved by: Marc Sandhu MD on 07/21/2024 11:46 AM [facility] Station ID: [id number]
--- NOTE | 2024-07-21 15:18 | Discharge Summary ---
Discharge Summary Admit Date: 07/20/24 Discharge Date: 07/21/24 Discharging Provider: Parth Winn NP Primary Care Provider: Xavi Hagen Code Status: Attempt Resuscitation DIAGNOSES Admission Diagnoses: Syncope and collapse Type 2 diabetes without long-term insulin use Discharge Diagnoses with Status of Each Condition: Syncope and collapseresolved Type 2 diabetes without long-term insulin usechronic HPI History of Present Illness: 74-year-old female past medical history significant for type 2 diabetes and hypertension who reports she has been having some intermittent diarrhea over the past week. She woke up this morning feeling tired, and started feeling lightheaded and dizzy when she started walking around. She went to the bathroom thinking she might have to throw up and had a syncopal episode. She vomited several times. She denies fevers but reports chills In the ER, workup has been unremarkable thus far. Head CT was without acute abnormality. EKG NSR. Chemistry panel without significant abnormality. HOSPITAL COURSE Hospital Course: Patient was placed in observation and underwent MRI brain which was negative for acute abnormality. Telemetry showed some PVCs that were not captured on EKG. Echo is unavailable at this time, so she will follow-up outpatient for echo. She experienced no more episodes of lightheadedness or dizziness. ALLERGIES Allergies Allergy/AdvReac Type Severity Reaction Status Date / Time No Known Drug Allergies Allergy Verified 07/20/24 09:21 MEDICATIONS Ambulatory Orders Medication Instructions Recorded Confirmed amlodipine 10 mg tablet 10 mg PO DAILY 07/20/24 07/20/24 ascorbic acid (vitamin C) 500 mg 500 mg PO DAILY 07/20/24 07/20/24 tablet atorvastatin 20 mg tablet 20 mg PO QPM 07/20/24 07/20/24 cholecalciferol (vitamin D3) 1,250 1,250 mcg PO QWEEK 07/20/24 07/20/24 mcg (50,000 unit) capsule diphenhydramine HCl 25 mg capsule 25 mg PO Q8H PRN allergy symptoms 07/20/24 07/20/24 (Allergy (diphenhydramine)) glucosamine-chondroitin 500 mg-400 1 cap PO DAILY 07/20/24 07/20/24 mg capsule hydrochlorothiazide 12.5 mg tablet 12.5 mg PO DAILY 07/20/24 07/20/24 ibuprofen 200 mg tablet (Advil) 200 mg PO DAILY PRN pain 07/20/24 07/20/24 lisinopril 10 mg tablet 10 mg PO DAILY 07/20/24 07/20/24 lutein 10 mg tablet 10 mg PO DAILY 07/20/24 07/20/24 metformin 500 mg tablet,extended 500 mg PO BID 07/20/24 07/20/24 release 24 hr omega 3-uyf-ngc-fish oil 1,000 mg 1 cap PO DAILY 07/20/24 07/20/24 (120 mg-180 mg) capsule (Fish Oil) trazodone 50 mg tablet 75 mg PO QPM PRN sleep 07/20/24 07/20/24 turmeric root extract 500 mg tablet 500 mg PO DAILY 07/20/24 07/20/24 PHYSICAL EXAM AT DISCHARGE General Appearance: positive No acute distress and Alert Eyes Bilateral: positive Normal inspection ENT: positive ENT inspection nml Neck: positive Nml inspection Respiratory: positive Chest non-tender Cardiovascular: positive Regular rate & rhythm Peripheral Pulses: positive 2+ Abdomen: positive Non-tender Skin: positive Color nml Extremities: positive Non-tender Neurologic/Psychiatric: positive Oriented x3 LABS 07/21/24 05:23 07/21/24 05:23 FOLLOW UP Follow Up: With PCP Consider escalation of antidiabetic regimen TIME SPENT Time Spent in Discharge (Minutes): 15 Discharge Plan Discharge Patient Disposition: 01 Home, Self Care Condition: Stable Medically Cleared Date:: 07/21/24 Prescriptions: Continued atorvastatin 20 mg tablet 20 mg PO QPM Patient Comments: TAKE 1 TABLET BY MOUTH DAILY trazodone 50 mg tablet 75 mg PO QPM PRN (Reason: sleep) Patient Comments: TAKE 1 AND 1/2 TABLETS BY MOUTH AT BEDTIME NEEDED FOR SLEEP amlodipine 10 mg tablet 10 mg PO DAILY Patient Comments: TAKE 1 TABLET BY MOUTH DAILY lisinopril 10 mg tablet 10 mg PO DAILY Patient Comments: TAKE 1 TABLET BY MOUTH DAILY metformin 500 mg tablet extended release 24 hr 500 mg PO BID Patient Comments: TAKE 1 TABLET BY MOUTH TWICE DAILY hydrochlorothiazide 12.5 mg tablet 12.5 mg PO DAILY Patient Comments: TAKE 1 TABLET BY MOUTH DAILY ibuprofen [Advil] 200 mg tablet 200 mg PO DAILY PRN (Reason: pain) diphenhydramine HCl [Allergy (diphenhydramine)] 25 mg capsule 25 mg PO Q8H PRN (Reason: allergy symptoms) omega 0-cla-pub-fish oil [Fish Oil] 1,000 (120-180) mg capsule 1 cap PO DAILY lutein 10 mg tablet 10 mg PO DAILY Rx Instructions: give with meal/snack ascorbic acid (vitamin C) 500 mg tablet 500 mg PO DAILY cholecalciferol (vitamin D3) 1,250 mcg (50,000 unit) capsule 1,250 mcg PO QWEEK glucosamine-chondroitin 500-400 mg capsule 1 cap PO DAILY Rx Instructions: give with meal/snack turmeric root extract 500 mg tablet 500 mg PO DAILY Diet: Regular Health Concerns: You are a 74-year-old female [facility] significant for hypertension and diabetes who came in after having a syncopal episode with fall at home. You were placed in observation so that we could rule out multiple causes of this fall. You were placed on telemetry, which has shown normal sinus rhythm. You underwent MRI and echocardiogram. Your MRI was negative, echocardiogram has not resulted yet. I am discharging you home with no changes to your medication regimen. I would encourage you follow-up with your PCP regarding the results of the tests you underwent today within 2 weeks. He reported a few episodes of diarrhea. I suspect that this could be caused by dehydration, for which she received IV fluid replacement Care Plan Goals: Follow-up with PCP within 2 weeks Exercise caution when moving around at home Assessment: Able to perform ADLs, going home with family. No change to medication regimen. Follow-up with PCP within 2 weeks Plan of Treatment: Be cautious with activity, do not overexert yourself Follow-up with PCP within 2 weeks Drink plenty of water Monitor blood pressure at home Print Language: Swiss Patient Instructions: Dizziness Fainting Ch Stand Alone Forms: PCP List Follow-up Care: BRANDON HAGEN MD [Primary Care Provider] -
== END 2024-07-21 16:00 | disposition home or self-care (01) ==
LOC: MS2 09:12 → ED 09:12 → MS2 12:35
PROVIDERS: ADMIT Nurse Practitioner Acute Care; ATTEND Nurse Practitioner Acute Care
DX: Z79.84 Long term (current) use of oral hypoglycemic drugs; I10 Essential (primary) hypertension; Z79.82 Long term (current) use of aspirin; Z91.81 History of falling; I49.3 Ventricular premature depolarization; R11.2 Nausea with vomiting, unspecified; E11.9 Type 2 diabetes mellitus without complications; R55 Syncope and collapse